=== PATIENT | female | born 2000 | race Caucasian/White ===

== ENCOUNTER 2022-05-02 08:10 | Emergency (ER) | payer OTHER ==
[2022-05-02] MEDS ORDERED: SODIUM CHLORIDE 1,000 ML IV STA (08:28)
[2022-05-02] MEDS ORDERED: ACETAMINOPHEN 1000 MG/100 ML BAG IVPB ONE (08:28)
[2022-05-02] MEDS ORDERED: ONDANSETRON 4 MG/2 ML VIAL IVPB ONE (08:28)
[2022-05-02 08:29] VITALS: BP 124/92; PULSE 79; RESP 20; TEMP 97.7; BMI 24.0
[2022-05-02] MEDS ORDERED: ACETAMINOPHEN INJECTION 100 ML IVPB ONE (08:38)
[2022-05-02] MEDS ORDERED: ONDANSETRON 4 MG/2 ML VIAL ONE (08:38)
[2022-05-02 09:06] LABS: HEMATOCRIT 35.4 % (32.4-45.2); HEMOGLOBIN 12.4 G/dL (10.7-15.3); MCH 27.2 pg (25.7-33.7); MCHC 34.9 g/dl (32.0-36.0); MEAN CELL VOLUME 77.7 fl (80-96); MEAN PLT VOLUME 7.5 fl (7.5-11.1); PLATELET COUNT 330.1 10^3/uL (134-434); RBC 4.55 10^6/uL (3.60-5.2); RDW 14.8 % (11.6-15.6); WHITE BLOOD COUNT 17.7 10^3/uL (4.0-10.8)
[2022-05-02] MEDS ORDERED: KETOROLAC TROMETHAMINE 15 MG/ML VIAL ONE (09:08)
[2022-05-02] MEDS ORDERED: FAMOTIDINE 20 MG/50 ML IVPB 20 MG/50 ML MG IVPB ONE ×2 (09:25→09:28)
[2022-05-02] MEDS ORDERED: KETOROLAC TROMETHAMINE 30 MG/1 ML VIAL IVPUSH ONE (09:26)
[2022-05-02] MEDS ORDERED: PANTOPRAZOLE SODIUM 40 MG VIAL IVPUSH ONE (09:30)
[2022-05-02] MEDS ORDERED: METOCLOPRAMIDE HCL INJECTION 10 MG/2 ML VIAL IVPUSH ONE (09:30)
[2022-05-02 09:38] LABS: PLATELET ESTIMATE ADEQUATE
[2022-05-02 09:40] LABS: ALBUMIN 4.3 g/dl (3.4-5.0); CALCIUM 9.4 mg/dl (8.5-10); CREATININE 0.6 mg/dl (0.55-1.3); TOT PROT 7.1 g/dl (6.4-8.2)
[2022-05-02 09:41] LABS: HCG,QUALITATIVE URINE Negative
[2022-05-02 09:46] LABS: EPITHELIAL CELLS RARE /hpf
== END 2022-05-02 13:01 | disposition home or self-care (01) ==
LOC: FER 08:10
PROC: 3E0333Z Introduction of Anti-inflammatory into Peripheral Vein, Percutaneous Approach (ICD-10-PCS; principal; 2022-05-02)
PROC: 3E033GC Introduction of Other Therapeutic Substance into Peripheral Vein, Percutaneous Approach (ICD-10-PCS; 2022-05-02)
PROC: 3E0333Z Introduction of Anti-inflammatory into Peripheral Vein, Percutaneous Approach (ICD-10-PCS; 2022-05-02)
PROC: 3E033GC Introduction of Other Therapeutic Substance into Peripheral Vein, Percutaneous Approach (ICD-10-PCS; 2022-05-02)
PROC: 3E0337Z Introduction of Electrolytic and Water Balance Substance into Peripheral Vein, Percutaneous Approach (ICD-10-PCS; 2022-05-02)
DX: A09 Infectious gastroenteritis and colitis, unspecified (principal)
CPT/HCPCS: 36415; 76705-TC; 80053; 81003; 81015; 84703; 85027; 86709; 99284-25

== ENCOUNTER 2022-09-06 19:24 | Day surgery (SDC) | payer OTHER ==
[2022-09-06] MEDS ORDERED: SODIUM CHLORIDE 1,000 ML IV ONE (19:32)
[2022-09-06] MEDS ORDERED: ONDANSETRON 4 MG/2 ML VIAL IVPB ONE (19:32)
[2022-09-06] MEDS ORDERED: FAMOTIDINE 20 MG/50 ML IVPB 20 MG/50 ML MG IVPB ONE ×3 (19:41→19:59)
[2022-09-06] MEDS ORDERED: ONDANSETRON 4 MG/2 ML VIAL ONE (19:47)
[2022-09-06 20:28] VITALS: BMI 24.0
[2022-09-06 21:16] LABS: HCG,QUALITATIVE URINE Negative
[2022-09-06 21:18] LABS: HEMATOCRIT 35.1 % (32.4-45.2); HEMOGLOBIN 11.8 G/dL (10.7-15.3); MCH 26.2 pg (25.7-33.7); MCHC 33.5 g/dl (32.0-36.0); MEAN CELL VOLUME 78.1 fl (80-96); MEAN PLT VOLUME 7.7 fl (7.5-11.1); RBC 4.49 10^6/uL (3.60-5.2)
[2022-09-06 21:30] LABS: EPITHELIAL CELLS FEW /hpf
[2022-09-06] MEDS ORDERED: ACETAMINOPHEN 1000 MG/100 ML BAG IVPB ONE (21:33)
[2022-09-06] MEDS ORDERED: ACETAMINOPHEN INJECTION 100 ML IVPB ONE (21:34)
[2022-09-06 21:40] LABS: ALBUMIN 4.2 g/dl (3.4-5.0); ALK PHOS 37 U/L (45-117); ANION GAP 9 MMOL/L (8-16); BILIRUBIN,TOTAL 0.6 mg/dl (0.2-1); CALCIUM 8.7 mg/dl (8.5-10); CHLORIDE 102 mmol/L (98-107); CO2 25 mmol/L (21-32); CREATININE 0.5 mg/dl (0.55-1.3); GLUCOSE,RANDOM 106 mg/dl (74-106); SGOT/AST 19 U/L (15-37); SGPT/ALT 14 U/L (13-61); SODIUM 136 mmol/L (136-145); TOT PROT 6.6 g/dl (6.4-8.2)
[2022-09-06 22:50] LABS: LIPASE 65 U/L (73-393); URINE AMPHETAMINES NEGATIVE (NEGATIVE)
[2022-09-06 22:51] LABS: COCAINE, UR NEGATIVE (NEGATIVE); PHENCYCLIDINE,URINE NEGATIVE (NEGATIVE); URINE BARBITURATES NEGATIVE (NEGATIVE); URINE BENZODIAZEPINES NEGATIVE (NEGATIVE)
[2022-09-06 22:57] LABS: METHADONE, UR NEGATIVE (NEGATIVE); OPIATES, URI NEGATIVE (NEGATIVE)
[2022-09-06] MEDS ORDERED: SODIUM CHLORIDE 1,000 ML IV SCH (23:00)
[2022-09-06] MEDS ORDERED: ONDANSETRON 4 MG/2 ML VIAL IVPB PRN (23:03)
[2022-09-06 23:32] LABS: MAGNESIUM 1.8 mg/dL (1.8-2.4); PHOSPHOROUS 3.6 mg/dl (2.5-4.9)
[2022-09-07] MEDS: CEFAZOLIN SODIUM 2 GM in DEXTROSE 5%-WATER 100 ML IVPB SCH ×2 (00:38→06:41)
[2022-09-07] MEDS: ACETAMINOPHEN 1000 MG/100 ML BAG IVPB PRN ×2 (05:37→11:10)
[2022-09-07] MEDS ORDERED: ONDANSETRON 4 MG/2 ML VIAL IVPB PRN ×2 (07:24→13:54)
[2022-09-07 10:11] LABS: INR 1.21 (0.83-1.09); PROTHROMBIN TIME (PATIENT) 13.9 SEC (9.7-13.0)
[2022-09-07 10:14] LABS: ACTIVATED PTT 27.5 SECONDS (25.2-36.5)
[2022-09-07] MEDS ORDERED: MIDAZOLAM HCL 2 MG/2 ML SINGLE DOSE VIAL ONE (11:22)
[2022-09-07] MEDS ORDERED: BUPIVACAINE HCL/PF 2.5 MG/ML - 30 ML VIAL IJ ONE (11:23)
[2022-09-07] MEDS ORDERED: PROPOFOL 40 ML ONE (11:23)
[2022-09-07] MEDS ORDERED: SUCCINYLCHOLINE CHLORIDE 200 MG/10 ML SYRINGE ONE (11:23)
[2022-09-07] MEDS ORDERED: ROCURONIUM BROMIDE 50 MG/5 ML SYRINGE ONE (11:23)
[2022-09-07] MEDS ORDERED: BUPIVACAINE HCL 100 ML ONE (11:23)
[2022-09-07] MEDS ORDERED: SUGAMMADEX SODIUM 200 MG/2 ML VIAL ONE (12:27)
[2022-09-07] MEDS ORDERED: oxyCODONE HCL 5 MG TABLET PO PRN (13:30)
[2022-09-07] MEDS ORDERED: ACETAMINOPHEN 325 MG TABLET (FP) PO PRN (13:30)
[2022-09-07] MEDS ORDERED: LACTATED RINGERS SOLUTION 1,000 ML IV SCH (13:45)
[2022-09-07] MEDS ORDERED: ACETAMINOPHEN 1000 MG/100 ML BAG IVPB PRN (13:54)
[2022-09-07] MEDS ORDERED: SODIUM CHLORIDE 1,000 ML IV SCH (13:54)
[2022-09-07 15:23] VITALS: BP 114/53; PULSE 48; RESP 18; TEMP 98.1
[2022-09-07] MEDS ORDERED: KETOROLAC TROMETHAMINE 30 MG/1 ML VIAL IVPUSH SCH (18:00)
== END 2022-09-07 16:53 | disposition home or self-care (01) ==
LOC: FER 19:24 → FM/S 22:45 → UNDOADMOB 22:45 → FM/S 23:59 → INTOOBSV 23:59 → UNDOADMOB 23:59 → FASUSAT 09-07 11:11 → FM/S 09-07 11:11 → FASUSAT 09-07 16:53
PROVIDERS: ATTEND Internal Medicine
PROC: 0DTJ4ZZ Resection of Appendix, Percutaneous Endoscopic Approach (ICD-10-PCS; principal; 2022-09-07 12:49)
DX: K35.80 Unspecified acute appendicitis (principal)
CPT/HCPCS: 36415; 74177-TC; 80053; 80307; 81003; 81015; 83605; 83690; 83735; 84100; 84703; 85027; 85610; 85730; 86140; 87040; 88304-TC; 93005; 94760; 99285-25; C9803-CS; Q9967; U0003; U0005